=== PATIENT | male | born 1955 | race Caucasian/White ===

== ENCOUNTER 2016-09-24 13:02 | Emergency (ER) ==
[2016-09-24] MEDS ORDERED: SODIUM CHLORIDE 500 ML IV STA (13:08)
[2016-09-24] MEDS ORDERED: PROTONIX IV 40 MG in SODIUM CHLORIDE 100 ML IV STA (13:18)
[2016-09-24] MEDS ORDERED: PROTONIX IV IVP STA (13:18)
[2016-09-24 13:19] VITALS: BMI 19.2
[2016-09-24] MEDS ORDERED: PROTONIX IV ONE (13:28)
--- NOTE | 2016-09-24 14:07 | DI ---
EXAM: Single view of the chest. History: Chest pain. Findings: Heart size is normal. No focal consolidation. No appreciable pleural fluid and no pneum othorax. Mild hyperinflation. No acute osseous abnormalities. Impression: No acute cardiopulmonary process. Possible chronic obstructive pulmonary disease.
[2016-09-24 14:10] LABS: OCCULT BLOOD INTERNAL QC 1 INTERNAL QC VALID; OCCULT BLOOD SAMPLE 1 POSITIVE (NEGATIVE)
[2016-09-24 14:12] LABS: MEAN CORPUSCULAR HEMOGLOBIN 33.7 pg (27.0-31.0); PLATELET COUNT 341 10^3/uL (140-440); RED BLOOD COUNT 1.04 10^6/ul (4.70-6.10); WHITE BLOOD COUNT 22.26 K/ul (4.2-10.2)
--- NOTE | 2016-09-24 14:13 | ED.PDOC ---
General ED Provider: Dr. CHARANJIT LUCSA Chief Complaint: GI Bleed Stated Complaint: BLACK TARRY STOOL Time Seen by Physician: 13:00 (BLACK STOOL X NEARLY 1 WEEK DRINKS WHISKY HEAVILY ) Mode of Arrival: Walk-In Information Source: Patient Exam Limitations: No limitations Primary Care Provider: MERCED TABARES Nursing and Triage Documentation Reviewed and Agree: Yes (PT ATTENDS ID ) GI Complaint Exam - Rectal Complaint/Exam Onset/Duration: 4 DAYS Symptoms Are: Still present Timing: Intermittent Episodes Lasting: Hours Initial Severity: Moderate Current Severity: Moderate Location: Reports: No pain (BUT HAS BEEN HAVING ABDOMINAL PAIN BLACK STOOLS) Associated Signs and Symptoms: Reports: Black tarry stool Related History: Reports: Similar episode Related Surgical History: Reports: None Rectal Exam: Present: Melena Differential Diagnoses: Other (PUD /GASTERITIS ) Review of Systems - Review Of Systems Constitutional: Reports: No symptoms Eyes: Reports: No symptoms Ears, Nose, Mouth, Throat: Reports: No symptoms Respiratory: Reports: No symptoms Cardiac: Reports: No symptoms GI: Reports: Abdominal pain : Reports: No symptoms Musculoskeletal: Reports: No symptoms Skin: Reports: No symptoms Neurological: Reports: No symptoms Endocrine: Reports: No symptoms Hematologic/Lymphatic: Reports: No symptoms All Other Systems: Reviewed and Negative Past Medical History - Past Medical History Previously Healthy: Yes Endocrine: Reports: None Cardiovascular: Reports: None Respiratory: Reports: None Hematological: Reports: None Gastrointestinal: Reports: None Genitourinary: Reports: None Neuro/Psych: Reports: None Musculoskeletal: Reports: None Cancer: Reports: None - Surgical History General Surgical History: Reports: None - Family History Family History: Reports: None - Social History Smoking Status: Current every day smoker, Heavy tobacco smoker Alcohol Screening: Heavy Physical Exam - Physical Exam Appearance: Well-appearing, No pain distress, Well-nourished Eyes: MANINDER, EOMI, Conjunctiva clear ENT: Ears normal, Nose normal, Oropharynx normal Respiratory: Airway patent, Breath sounds clear, Breath sounds equal, Respirations nonlabored Cardiovascular: RRR, Pulses normal, No rub, No murmur GI/: No masses, Bowel sounds normal, No Organomegaly, Tender (DIFFUSE ) Musculoskeletal: Normal strength, ROM intact, No edema, No calf tenderness Skin: Warm, Dry, Normal color Neurological: Sensation intact, Motor intact, Reflexes intact, Cranial nerves intact, Alert, Oriented Psychiatric: Affect appropriate, Mood appropriate 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 Rhythm: Sinus - EKG Interpretation Rate: Tachy Rhythm: Sinus Physician Notification - Case Discussed Physician Notified: GI Time of Notification: 14:36 (TRANSFER NOW) Critical Care Note - Critical Care Note Total Time (mins): 0 Course - Course Hematology/Chemistry: 09/24/16 12:45 09/24/16 13:05 Orders, Labs, Meds: Lab Review 09/24/16 09/24/16 12:45 13:05 WBC 22.26 H RBC 1.04 L Hgb 3.5 L* Hct 10.3 L* MCV 99.0 H MCH 33.7 H MCHC 34.0 RDW Coeff of Shi 13.9 Plt Count 341 Neutrophils % (Manual) 51.0 Lymphocytes % (Manual) 41.0 Monocytes % (Manual) 2.0 Eosinophils % (Manual) 2.0 Promyelocytes % 2.0 H Blast Cells 2.0 H Anisocytosis Not present PT 10.6 INR 1.03 Sodium 136 Potassium 3.2 L Chloride 106 Carbon Dioxide 20 L Anion Gap 13.2 BUN 24 H Creatinine 0.72 Estimated GFR (MDRD) 110.00 BUN/Creatinine Ratio 33.33 Glucose 178 H Lactic Acid 18.0 Calcium 7.2 L Total Bilirubin 0.28 AST 7 L ALT 6 L Alkaline Phosphatase 44 L Total Creatine Kinase 14 Troponin I 0.0110 Total Protein 4.6 L Albumin 2.0 L Globulin 2.6 Albumin/Globulin Ratio 0.77 Amylase 50 Lipase 31 Procalcitonin 141.00 Stl Occult Blood (IFOB) Positive Stool Occult Blood #2 No specimen received Stool Occult Blood #3 No specimen received Plasma/Serum Alcohol < 10.0 H. pylori IgG Antibody Positive Blood Type O POSITIVE Antibody Screen Negative Crossmatch (AHG) See Detail Orders Category Date Time Status ABG DRAW REQUEST Stat CARDIO 09/24/16 13:15 Completed EKG-(ED ONLY) Stat CARDIO 09/24/16 13:06 Completed TRANSFER TO OUTSIDE FACILITY .TO [facility] 09/24/16 14:37 Active ([place]) WRITE TRANSFER/SBAR NOTE ONCE CARE 09/24/16 14:37 Active DISCHARGE ASSESSMENT ONCE DISCHARGE 09/24/16 14:37 Active WRITE DISCHARGE NOTE ONCE DISCHARGE 09/24/16 14:37 Active AMYLASE Stat LAB 09/24/16 13:05 Completed BLOOD ALCOHOL Stat LAB 09/24/16 13:05 Completed BLOOD CULTURE Stat LAB 09/24/16 12:45 Received CBC W/ AUTO DIFF Stat LAB 09/24/16 12:45 Completed COMPREHENSIVE METABOLIC PANEL Stat LAB 09/24/16 13:05 Completed CREATINE KINASE Stat LAB 09/24/16 13:05 Completed H. PYLORI SCREEN Stat LAB 09/24/16 12:45 Completed LACTIC ACID Stat LAB 09/24/16 12:45 Completed LIPASE Stat LAB 09/24/16 13:05 Completed MANUAL DIFFERENTIAL Stat LAB 09/24/16 12:45 Completed OCCULT BLOOD, STOOL Stat LAB 09/24/16 12:45 Completed PRBC Transfusion [PACKED CELLS] Stat LAB 09/24/16 12:45 Completed PROCALCITONIN Stat LAB 09/24/16 12:45 Completed PT WITH INR Stat LAB 09/24/16 12:45 Completed TROPONIN I Stat LAB 09/24/16 13:05 Completed TYPE AND SCREEN Stat LAB 09/24/16 12:45 Completed Ondansetron HCl/Pf [Zofran 4 mg/2 ml] MEDS 09/24/16 14:55 Discontinued 4 mg IVP ONCE STA Pantoprazole Sodium [Protonix IV] MEDS 09/24/16 13:28 Discontinued 40 mg .ROUTE .STK-MED ONE Pantoprazole Sodium [Protonix IV] 40 mg MEDS 09/24/16 13:18 Discontinued 0.9 % Sodium Chloride [Sodium Chloride] 100 ml IV ONCE Piperacillin Sodium/Tazobactam [Zosyn 4.5 gm] 4.5 gm MEDS 09/24/16 14:55 Discontinued 0.9 % Sodium Chloride [Sodium Chloride] 100 ml IV ONCE Sodium Chloride 0.9% [Sodium Chloride] 500 ml MEDS 09/24/16 13:08 Discontinued IV BOLUS CHEST, 1V AP ONLY Stat RADS 09/24/16 13:[address] ABDOMEN/PELVIS WO CONTRAST Stat RADS 09/24/16 13:06 Completed Medications Discontinued Medications Generic Name Dose Route Start Last Admin Trade Name Freq PRN Reason Stop Dose Admin Sodium Chloride 500 mls @ 500 mls/hr 09/24/16 13:08 09/24/16 13:30 Sodium Chloride IV 09/24/16 14:07 500 mls/hr BOLUS STA Administration Pantoprazole Sodium 40 mg/ 100 mls @ 100 mls/hr 09/24/16 13:18 09/24/16 13:48 Sodium Chloride IV 09/24/16 14:17 Not Given ONCE STA Piperacillin Sod/Tazobactam 100 mls @ 100 mls/hr 09/24/16 14:55 09/24/16 15: 22 Sod 4.5 gm/ Sodium Chloride IV 09/24/16 15:54 100 mls/hr ONCE STA Administration Ondansetron HCl 4 mg 09/24/16 14:55 09/24/16 16:15 Zofran 4 Mg/2 Ml IVP 09/24/16 14:56 Not Given ONCE STA Vital Signs: Temp Pulse Resp BP Pulse Ox 09/24/16 15:45 97.8 F 99 H 20 96/56 L 09/24/16 15:29 97.6 F 98 H 20 98/69 09/24/16 15:25 97.7 F 99 H 20 94/71 09/24/16 15:15 97.7 F 98 H 20 107/56 L 09/24/16 15:11 98.7 F 101 H 22 108/66 09/24/16 15:09 97.8 F 102 H 20 105/64 09/24/16 15:04 97.7 F 100 H 20 106/68 09/24/16 15:03 97.9 F 106 H 20 106/66 09/24/16 13:03 98.6 F 101 H 20 94/63 100 Departure - Departure Time of Disposition: 16:00 (transfered to [facility] had a con frence with family and discussed care and transfer transfused 1 unit PRBC IN THE E/D NO COMPLICATION DURING TRANSFUSION .) Disposition: TSF SHORT-TRM HOSP Discharge Problem: Gastrointestinal hemorrhage Instructions: Gastrointestinal Bleeding (ED) Condition: Good Pt referred to PMD for follow-up: Yes (TRANSFER ) Additional Instructions: Please call your Family Physician as soon as possible to schedule a follow-up appointment. Allergies/Adverse Reactions: Allergies No Known Allergies Allergy (Unverified 09/24/16 15:01) Home Medications: Ambulatory Orders 1 [No Reported Medications] 09/24/16 Disposition Discussed With: Patient
[2016-09-24 14:16] LABS: HEMATOCRIT 10.3 % (42.0-52.0); HEMOGLOBIN 3.5 g/dl (14.0-18.0)
[2016-09-24 14:20] LABS: ANISOCYTOSIS NOT PRESENT (NOT PRESENT)
[2016-09-24 14:31] LABS: PROTHROMBIN TIME 10.6 SEC (9.3-11.0)
--- NOTE | 2016-09-24 14:38 | CT ---
EXAM: CT ABDOMEN AND PELVIS HISTORY: Pain and blood in stool, vomiting TECHNIQUE: CT abdomen and pelvis without intravenous contrast. Images were reconstructed using 5 m m section thickness. Reformations were prepared. COMPARISON: None FINDINGS: Diagnostic limitations exist without including contrast enhanced images. No focal hepatic or spleni c lesions identified. Gallbladder and pancreas are within normal limits. No adrenal nodule. No hy dronephrosis or evidence of ureteral obstruction. There is mild to moderate atherosclerotic disease . Incidental note of prominent periaortic, periportal and mesenteric lymph nodes some measuring up to about a centimeter short axis. Gastric wall/rugal thickening may be present. There is no significant gastric distension. An appen theron is not easily seen, if present. No right lower quadrant inflammation or fluid. Bowel gas patte rn is nonobstructive. Mild prostate enlargement. Urinary bladder is unremarkable. No abdominal wall hernia. Mild to moderate degenerative changes of the spine. Lung bases are free of acute infiltrate. No pneumoperitoneum. IMPRESSION: 1. Gastric wall/rugal thickening may indicate gastritis, peptic ulcer disease or neoplasia. Bowel g as pattern is nonobstructive. No well-defined bowel mass. Further workup may be indicated. 2. Prominent lymph nodes which may be reactive in nature. Early lymphoproliferative disease not ex cluded. 3. Mild to moderate atherosclerotic disease. 4. Mild prostate enlargement.
[2016-09-24 14:40] LABS: H. PYLORI ANTIBODY POSITIVE (NEGATIVE)
[2016-09-24 14:41] LABS: H.PYLORI INTERNAL QC INTERNAL QC VALID
[2016-09-24] MEDS ORDERED: ZOFRAN 4 MG/2 ML IVP STA (14:55)
[2016-09-24] MEDS ORDERED: ZOSYN 4.5 GM 4.5 GM in SODIUM CHLORIDE 100 ML IV STA (14:55)
[2016-09-24 15:51] LABS: ALANINE AMINOTRANSFERASE 6 U/L (12-78); ALBUMIN/GLOBULIN RATIO 0.77; ALKALINE PHOSPHATASE 44 U/L (56-119); AMYLASE 50 U/L (25-115); ANION GAP 13.2; ASPARTATE AMINO TRANSFERASE 7 U/L (15-37); BILIRUBIN,TOTAL 0.28 mg/dL (0.00-1.20); BLOOD UREA NITROGEN 24 mg/dL (7-18); BUN/CREATININE RATIO 33.33; CALCIUM 7.2 mg/dL (8.2-10.2); CARBON DIOXIDE 20 mmol/L (23-31); CHLORIDE 106 mmol/L (98-107); CREATINE KINASE 14 U/L; CREATININE 0.72 mg/dL (0.60-1.10); GLUCOSE 178 mg/dL (82-115); LIPASE 31 U/L (8-78); POTASSIUM 3.2 mmol/L (3.5-5.1); SODIUM 136 mmol/L (136-145); TOTAL PROTEIN 4.6 g/dL (5.8-8.1)
[2016-09-24 18:51] VITALS: BP 96/56; TEMP 97.8
[2016-09-24 19:40] LABS: OCCULT BLOOD INTERNAL QC 2 INTERNAL QC VALID; OCCULT BLOOD INTERNAL QC 3 INTERNAL QC VALID; OCCULT BLOOD SAMPLE 2 NO SPECIMEN RECEIVED (NEGATIVE); OCCULT BLOOD SAMPLE 3 NO SPECIMEN RECEIVED (NEGATIVE)
== END 2016-09-24 16:00 | disposition short-term general hospital (02) ==
LOC: ED 13:02
DX: K92.2 Gastrointestinal hemorrhage, unspecified (principal); R10.9 Unspecified abdominal pain; F17.210 Nicotine dependence, cigarettes, uncomplicated; F10.10 Alcohol abuse, uncomplicated
CPT/HCPCS: 36415; 36430; 80053; 80307; 82150; 82272; 82550; 83605; 83690; 84145; 84484; 85007; 85025; 85610; 86677; 86850; 86900; 86922; 87040; 93005; 93010; 96361; 96365; 96375; 99285

== ENCOUNTER 2016-09-24 16:05 | Outpatient (CLI) ==
[2016-09-24 13:19] VITALS: BMI 19.2
== END 2016-09-24 16:06 | disposition home or self-care (01) ==
LOC: AMBL 16:05
PROVIDERS: ATTEND Internal Medicine
DX: R53.1 Weakness (principal); K92.2 Gastrointestinal hemorrhage, unspecified; R88.8 Abnormal findings in other body fluids and substances